=== PATIENT | female | born 1950 | race Caucasian/White ===

== ENCOUNTER → 2017-05-26 | Outpatient (CLI) | payer OTHER ==
[~2017-05-26] MED LIST: B12 SHOTS; BECL0.07 INH; CIPR500T2 PO; CYAN1000P IM; GLUCTAB PO; LASI20TA PO; LEVO125T3 PO; LORTA5 PO; MECL-62 PO; METO50TA PO; MORP1CAP63 PO; ONDA1TAB17 PO; POTA-267 PO; PRAV20 PO; PREG75 PO; RIVA20 PO; TOPI25 PO; VICT18IN SQ; VITA100018 PO; WALKER STANDARD; Z.0.OXYGEN INH
[2017-05-26 11:42] LABS: BLOOD GAS BASE EXCESS -3.6 mmol/L (-2-2); BLOOD GAS CARBOXYHEMOGLOBIN 2.2 % (0-4); BLOOD GAS HCO3 22 mmol/L (22-26); BLOOD GAS METHEMOGLOBIN 1.2 % (0-2); BLOOD GAS O2 HGB SATURATION 89 % (90-100); BLOOD GAS OXYGEN CONTENT 18.4 Vol % (12.0-20.0); BLOOD GAS PCO2 43 mmHg (38-42); BLOOD GAS PO2 69 mmHg (61-120); BLOOD GAS TOTAL HGB 14.6 G/DL (12.0-16.0); CRITICAL VALUE NO; DRAW SITE RT RADIAL; FIO2 21 %; NUMBER OF ARTERIAL PUNCTURES 1; STAT NO; TEMP CORR TO 98.6; ULNAR PULSE PRESENT
--- NOTE | 2017-05-26 14:18 | RADRPT ---
EXAM DATE/TIME: 05/26/2017 12:03 [facility] COMPARISON: No previous studies available for comparison. INDICATIONS : Cough. Short of breath. MEDICAL HISTORY : Chronic obstructive pulmonary disease. SURGICAL HISTORY : IVC filter placement. ENCOUNTER: Initial ACUITY: >1 year PAIN SCORE: 0/10 LOCATION: Bilateral chest FINDINGS: PA and lateral views of the chest demonstrate the lungs to be symmetrically aerated without evidence of mass, infiltrate or effusion. The cardiomediastinal contours are unremarkable. Osseous structure s are intact. CONCLUSION: No acute disease. There is no evidence of pneumonia. Kulwinder Cedeno MD on May 26, 2017 at 14:16 Board Certified Radiologist. This report was verified electronically.
--- NOTE | 2017-06-07 11:39 | RSPPFT ---
DATE OF PROCEDURE: 05/26/17 COMMENTS: Spirometry demonstrates an FEV1 of 1.2 at 58% of predicted, FVC of 1.9 at 69%, FEF 25-75 is 30%. Post-bronchodilator study demonstrated no significant change. Lung volumes demonstrated a raised RV/TLC ratio suggesting hyperinflation and air trapping. Airways resistance is increased. Diffusion capacity is moderately reduced. Flow volume loops suggest an obstructive pattern. Room air arterial blood gases demonstrated PCO2 of 43, PO2 of 69, pH of 7.32 and O2 Saturation of 89%. IMPRESSION: 1. Moderate obstructive disease. 2. No significant change following use of bronchodilator. 3. Moderate loss in diffusion capacity. 4. Additional mild restrictive disease.
== END ==
LOC: HRSP 10:39
DX: J44.9 Chronic obstructive pulmonary disease, unspecified (principal); R06.00 Dyspnea, unspecified; I10 Essential (primary) hypertension
CPT/HCPCS: 36600; 71020; 82805; 94060; 94726; 94729

== ENCOUNTER 2017-09-09 11:49 | Emergency (ER) | payer OTHER ==
[~2017-09-09] VITALS: Ht 160 cm; Wt 97.0 kg
[2017-09-09 12:02] VITALS: BP 185/111; PULSE 73; RESP 18; TEMP 98.1; O2SAT 96
[2017-09-09] MEDS ORDERED: METO50TA PO (12:47)
[2017-09-09] MEDS ORDERED: OXYC1TAB35 PO (12:47)
[2017-09-09] MEDS ORDERED: TOPI50TA7 PO (12:47)
[2017-09-09] MEDS ORDERED: LEVO112T2 PO (12:47)
[2017-09-09] MEDS ORDERED: POTA10TA2 PO (12:47)
[2017-09-09] MEDS ORDERED: XARE20TA PO (12:47)
[2017-09-09] MEDS ORDERED: MORP1TAB25 PO (12:47)
[2017-09-09] MEDS ORDERED: DULO1CAP2 PO (12:47)
[2017-09-09] MEDS ORDERED: SIMV20TA PO (12:47)
[2017-09-09] MEDS ORDERED: TRAZ1TAB14 PO (12:47)
[2017-09-09] MEDS ORDERED: PREG300 PO (12:47)
--- NOTE | 2017-09-09 12:59 | PD ---
HPI Chief Complaint: Musculoskeletal Complaint Time Seen by Provider: 12:48 Travel History International Travel<30 days: No Contact w/Intl Traveler<30days: No Traveled to known affect area: No History of Present Illness HPI Patient comes in complaining of intermittent right ankle pain ongoing for 2 weeks. Patient states pain comes when she steps a certain way. Patient tried using an Pablo wrap without improvement of symptoms. Denies any radiation of pain. Describes pain as a sharp intense pain. Denies any injury or fevers. PFSH Past Medical History Arthritis: Yes Blood Disorders: No Anxiety: Yes Cancer: Yes (MELANOMA NECK) Cardiovascular Problems: Yes (IRREGULAR HEARTRATE - Afib) High Cholesterol: Yes COPD: Yes Diabetes: Yes Patient Takes Glucophage: No Diminished Hearing: No Endocrine: Yes Fibromyalgia: Yes Gastrointestinal Disorders: Yes (GERD) Genitourinary: No Hepatitis: No Hiatal Hernia: No Hypertension: Yes Immune Disorder: No Implanted Vascular Access Dvce: Yes Medical other: Yes (FIBROMYALGIA; HX SEIZURE 2011) Musculoskeletal: Yes (SPINAL STENOSIS ; FIBROMYALGIA) Neurologic: Yes (NEUROPATHY ; SEIZURE 2011) Psychiatric: No Reproductive: No Respiratory: Yes (COPD; SLEEP APNEA, OXYGEN USE AT HOME 2LPM PRN) Immunizations Current: Yes Seizures: Yes Sleep Apnea: Yes (c-pap as needed) Thyroid Disease: Yes Tetanus Vaccination: > 5 Years Influenza Vaccination: Yes Menopausal: Yes Past Surgical History Abdominal Surgery: No Body Medical Devices: SCREW BACK Cardiac Surgery: No Section: Yes (x1) Ear Surgery: No Endocrine Surgery: Yes (PARTIAL THYROID REMOVAL) Eye Surgery: No Genitourinary Surgery: No Gynecologic Surgery: Yes (, left brest lumpectomy x 2, right breast lumpectomy x 1 beign cys) Joint Replacement: Yes (Left knee x3) Neurologic Surgery: Yes (LUMBAR LAMINECTOMY) Oral Surgery: Yes (TMJ) Pacemaker: No Thoracic Surgery: No Other Surgery: Yes (IVC filter) Social History Alcohol Use: No Tobacco Use: Yes (1 ppd) Substance Use: No Allergies-Medications (Allergen,Severity, Reaction): Coded Allergies: adenosine (Unverified Allergy, Severe, VOMITING, 09/09/17) duloxetine (Unverified Allergy, Mild, HEADACHE/DIZZY/VOMIT, 09/09/17) *MDRO Multi-Drug Resistant Organism (Verified Allergy, Unknown, 09/09/17) MRSA MRSA PCR Screen negative 02/24/15. Uncoded Allergies: CONTRAST MEDIA DYE (Allergy, Severe, VOMITING, 02/23/15) . Reported Meds & Prescriptions Reported Meds & Active Scripts Active Reported Oxycodone-Acetaminophen 7.5-325 mg Tab 1 Tab PO Q6H PRN Topiramate 50 Mg Tab 50 Mg PO BID Simvastatin 20 Mg Tab 20 Mg PO DAILY Levothyroxine (Levothyroxine Sodium) 112 Mcg Tab 112 Mcg PO DAILY Morphine ER (Morphine Sulfate) 30 Mg Tab 30 Mg PO BID Xarelto (Rivaroxaban) 20 Mg Tab 20 Mg PO DAILY Duloxetine DR (Duloxetine HCl) 30 Mg Capdr 30 Mg PO TID Lyrica (Pregabalin) 300 Mg Cap 1,000 Mg PO TID Metoprolol Tartrate 50 Mg Tab 50 Mg PO BID Trazodone (Trazodone HCl) 150 Mg Tablet 150 Mg PO HS Potassium Chloride ER (Potassium Chloride) 10 Meq Tab 10 Meq PO DAILY [B12 Shots] MONTHLY Review of Systems Except as stated in HPI: all other systems reviewed are Neg Physical Exam Narrative GENERAL: Well-developed, overly nourished, in no acute distress, and non-ill appearing. SKIN: Focused skin assessment warm and dry. HEAD: Atraumatic. Normocephalic. EYES: Pupils equal and round. EOMI. No scleral icterus. No injection or drainage. ENT: No nasal bleeding or discharge. Mucous membranes pink and moist. NECK: Trachea midline. Supple. No nuclear rigidity. CARDIOVASCULAR: Dorsal pulses 2+, intact, equal bilaterally. Capillary refill less than 2 seconds. RESPIRATORY: No accessory muscle use. No respiratory distress. MUSCULOSKELETAL: No obvious deformities. No clubbing. No cyanosis. No edema. Full range of motion.Ankle: Neagative anterior draw and Davis test. Negative Carson's sign. No laxity noted with passive inversion and eversion of BL ankles. Negative squeeze test. Pulses equal BL distal to injury. Capillary refill less than 2 seconds distal to injury and equal BL. Sensation equal BL 1st web space. FROM of toes distal to injury and equal BL. NV intact distal to injury and equal BL. Dorsal pulses equal BL. NEUROLOGICAL: Awake and alert. No obvious cranial nerve deficits. Motor grossly within normal limits. Normal speech. PSYCHIATRIC: Appropriate mood and affect; insight and judgment normal. Data Data Last Documented VS Vital Signs Date Time Temp Pulse Resp B/P (MAP) Pulse Ox O2 Delivery O2 Flow Rate FiO2 09/09/17 12:02 98.1 73 18 185/111 (135) 96 Orders Orders Ankle, Complete ([id number]) (09/09/17 ) Splint Or Brace Apply/Monitor (09/09/17 14:16) Ed Discharge Order (09/09/17 14:16) MDM Medical Decision Making Medical Screen Exam Complete: Yes Emergency Medical Condition: Yes Interpretation(s) Last Impressions Ankle X-Ray 09/09/17 0000 Signed Impressions: Service Date/Time: Tuesday, September 09, 2017 13:20 - CONCLUSION: 1. Soft tissue swelling along lateral malleolus. 2. No acute fracture or joint dislocation. Erwin Rojas MD Differential Diagnosis Fracture, sprain, contusion, dislocation, arthritis Narrative Course There is no clinical evidence for fracture. There is no clinical evidence to suspect bony injury by exam. Radiographic examination revealed no fracture seen at this time. No obvious ligamental injury or internal derangement is noted at this time. The distal extremity appears neurovascularly intact, without evidence of neurovascular injury nor compartment syndrome. Tendon exam also was intact. The effected limb was splinted. The patient was discharged with sprain and splint care instructions and given warnings for vascular compromise. The patient is to follow up with Orthopedics. The patient agrees with plan. Patient in no obvious distress upon re-evaluation. All pertinent Radiology result(s) discussed with patient. Any questions/concerns in reference to patient diagnosis/condition discussed and clarified prior to patient's discharge. Reinforced sheer importance of close follow up with patient's primary physician or primary care clinic. Instructed patient to return to ED immediately, if symptoms return/worsen. Patient showed understanding of above instructions. Further instructions and recommendations were detailed in discharge paperwork. Patient ambulated without difficulty out of ED at discharge. Diagnosis Primary Impression: Right ankle pain Qualified Codes: M25.571 - Pain in right ankle and joints of right foot Referrals: Tae Swan MD Patient Instructions: Ankle Stirrup Splint (ED), Arthralgia (ED), General Instructions Additional Instructions: Follow-up with your primary care physician and/or orthopedics this week for reevaluation. Take your pain medication as prescribed. Wear Pablo wrap and ankle stirrup as needed for comfort. Return to the emergency department if symptoms get worse. Disposition: 01 DISCHARGE HOME Condition: Stable Manish Smith Sep 09, 2017 12:59
--- NOTE | 2017-09-09 13:45 | RADRPT ---
EXAM DATE/TIME: 09/09/2017 13:20 [facility] COMPARISON: No previous studies available for comparison. INDICATIONS : Right lateral anlkle pain x 2 weeks with no known injury. MEDICAL HISTORY : Hypercholesterolemia. Chronic obstructive pulmonary disease. Gastroesophageal reflux disease. Thy roid disease. Seizures. Hypertension. Fibromyalgia. Spinal stenosis. SURGICAL HISTORY : section. Total knee replacement, left. IVC filter. Bilateral lumpectomy. Partial thyroidect leonela. ENCOUNTER: Initial ACUITY: 2 weeks PAIN SCORE: 5/10 LOCATION: Right lateral ankle. FINDINGS: Three view exam was performed of the right ankle. The bony structures are in normal alignment. No e vidence of fracture, dislocation. There is soft tissue swelling around the ankle and especially at th e lateral malleolus.. The ankle mortise is intact. No radiopaque foreign bodies are seen. Bony min eralization is normal. CONCLUSION: 1. Soft tissue swelling along lateral malleolus. 2. No acute fracture or joint dislocation. Erwin Rojas MD on September 09, 2017 at 13:42 Board Certified Radiologist. This report was verified electronically.
== END 2017-09-09 14:51 | disposition home or self-care (01) ==
LOC: PHEFT 11:49
DX: M25.571 Pain in right ankle and joints of right foot (principal); I48.91 Unspecified atrial fibrillation; E78.00 Pure hypercholesterolemia, unspecified; J44.9 Chronic obstructive pulmonary disease, unspecified; E11.9 Type 2 diabetes mellitus without complications; M79.7 Fibromyalgia; I10 Essential (primary) hypertension; M48.00 Spinal stenosis, site unspecified; E07.9 Disorder of thyroid, unspecified; F17.210 Nicotine dependence, cigarettes, uncomplicated; Z96.652 Presence of left artificial knee joint
CPT/HCPCS: 73610; 99283; L1906

== ENCOUNTER 2018-09-13 01:31 | Inpatient (IN) ==
[2018-09-13] MEDS ORDERED: Sodium Chlor 0.9% Inj 500 ML IV.SIG ONE (01:58)
[2018-09-13] MEDS ORDERED: MethylPREDNISolone Sod Succinate Inj 125 MG/2 ML Vial IV.PUSH ONE (01:58)
[2018-09-13] MEDS ORDERED: Azithromycin Inj 500 MG in Sodium Chlor 0.9% Inj 250 ML IV.SIG ONE (01:58)
[2018-09-13 01:59] LABS: ABG Base Excess -4.8 mmol/L (-2-2); ABG PCO2 31 mmHg (38-42); ABG PO2 52 mmHg (61-120)
[2018-09-13 02:16] LABS: ABG Base Excess -4.9 mmol/L (-2-2); ABG PCO2 31 mmHg (38-42); ABG PO2 55 mmHg (61-120)
--- NOTE | 2018-09-13 02:26 | XR ---
EXAM DATE: 09/13/2018 2:17 AM EST AGE/SEX: 67 years / Female INDICATIONS: Shortness of breath. CLINICAL DATA: This is the patient's initial encounter. Patient reports that signs and symptoms have been present for 1 day and indicates a pain score of Nonresponsive. MEDICAL/SURGICAL HISTORY: Hypertension. Chronic obstructive pulmonary disease. None. COMPARISON: POI, XR CHEST PA AND LAT, 02/01/2018. . FINDINGS: A single AP view of the chest demonstrates left basilar airspace disease. Right lung clear. Heart nor mal in size. The cardiomediastinal contours are unremarkable. Osseous structures are intact. CONCLUSION: Left basilar airspace disease. Electronically signed by: Mika Valentine MD Board Certified Radiologist 09/13/2018 2:24 AM EST
[2018-09-13 02:42] LABS: Bacteria,Urine Many /hpf; Bilirubin,Urine Negative (Negative); Clarity,Urine Cloudy (Clear); Color,Urine Amber (Yellw/Straw); Glucose,Urine (UA) Negative (Negative); Leukocyte Esterase,Urine Moderate (Negative); Mucus,Urine Few /lpf (Occasional); Nitrite,Urine Positive (Negative); Renal Epithelial Cells,Urine 1 /hpf; Specific Gravity,Urine 1.015 (1.002-1.035); Squamous Epithelial Cell,Urine <1 /hpf (0-5); Transitional Epi Cells,Urine 1 /hpf
[2018-09-13 02:48] LABS: Alanine Aminotransferase 16 U/L (10-53); Albumin 2.7 g/dL (3.4-5.0); Anion Gap 9 meq/L (5-15); Aspartate Aminotransferase 19 U/L (15-37); Blood Urea Nitrogen 27 mg/dL (7-18); Calcium 8.4 mg/dL (8.5-10.1); Chloride 113 meq/L (98-107); Glomerular Filtration Rate 58 mL/min (>89); Glucose,Random 135 mg/dL (74-106); Lipase 116 U/L (73-393); Magnesium 2.2 mg/dL (1.5-2.5); Potassium 4.7 meq/L (3.5-5.1); Sodium 143 meq/L (136-145)
[2018-09-13 02:52] LABS: Alkaline Phosphatase 108 U/L (45-117); Creatine Kinase 165 U/L (26-192); Total Protein 7.2 g/dL (6.4-8.2)
[2018-09-13 02:55] LABS: Baso % (Auto) 0.2 % (0.0-2.0); Eos % (Auto) 0.1 % (0.0-4.0); Hematocrit 41.3 % (35.0-46.0); Lymph # (Auto) 2.1 th/mm3 (1.0-4.8); Lymph % (Auto) 17.3 % (9.0-44.0); Mean Corpuscular HGB Conc 33.9 % (32.0-36.0); Mean Corpuscular Hemoglobin 31.9 pg (27.0-34.0); Mean Platelet Volume 8.9 fL (7.0-11.0); Mono % (Auto) 8.1 % (0.0-8.0); Neut % (Auto) 74.3 % (16.0-70.0); Platelet Count 225 th/mm3 (150-450); Red Blood Count 4.39 mil/mm3 (4.00-5.30); White Blood Count 12.1 th/mm3 (4.0-11.0)
[2018-09-13 03:04] LABS: ABG Base Excess -5.1 mmol/L (-2-2); ABG PCO2 34 mmHg (38-42); ABG PO2 57 mmHg (61-120)
[2018-09-13 03:04] LABS: Creatine Kinase MB 1.2 ng/mL (0.5-3.6)
[2018-09-13 03:06] LABS: Activated Partial Thrombo Time 30.8 sec (23.4-31.7); Prothrombin Time 10.2 sec (9.8-11.6)
--- NOTE | 2018-09-13 04:12 | ED ---
HPI General Chief complaint: Altered Mental Status Stated complaint: resp/mental status issues Time Seen by Provider: 09/13/18 01:40 Source: EMS Mode of arrival: EMS Limitations: altered mental status History of Present Illness HPI narrative: The patient is a 67 year old female who presents to the [facility] emergency department with a history of altered mentation that has been ongoing for the last 3 days according to ambulance services. The patient's called ambulance services when he was unable to fully assist her to the bathroom. The patient has been increasingly weak over time with generalized weakness. The patient arrived with a temp of 100.4. The patient was noted to have respiratory distress according to ambulance services with an O2 saturation on room air of 87%. The patient was noted to be wheezing and a DuoNeb x1 was administered followed by 2 albuterol nebulizer treatments. The patient reports that she does smoke 1 pack of cigarettes per day. The patient otherwise is difficult to obtain a history from as she has difficulty recalling her medical history and is confused on examination. The patient is oriented to person, however not place, time, or situation. Related Data Home Medications Medication Instructions Recorded Confirmed amlodipine 5 mg PO DAILY 09/13/18 09/13/18 cholecalciferol (vitamin D3) 2,000 unit PO BID 09/13/18 09/13/18 [Vitamin D3] duloxetine 30 mg PO TID 09/13/18 09/13/18 lamotrigine 100 mg PO DAILY 09/13/18 09/13/18 levothyroxine 112 mcg PO DAILY 09/13/18 09/13/18 losartan 100 mg PO DAILY 09/13/18 09/13/18 metoprolol tartrate 50 mg PO BID 09/13/18 09/13/18 mirabegron [Myrbetriq] 50 mg PO DAILY 09/13/18 09/13/18 morphine 30 mg PO Q12H 09/13/18 09/13/18 oxycodone-acetaminophen 1 tab PO Q6H PRN 09/13/18 09/13/18 potassium chloride 20 meq PO DAILY 09/13/18 09/13/18 pregabalin [Lyrica] 100 mg PO TID 09/13/18 09/13/18 rivaroxaban [Xarelto] 20 mg PO DAILY 12/19/18 12/19/18 simvastatin 20 mg PO QPM 09/13/18 09/13/18 topiramate 50 mg PO BID 09/13/18 09/13/18 trazodone 150 mg PO DAILY 09/13/18 09/13/18 Allergies Allergy/AdvReac Type Severity Reaction Status Date / Time adenosine Allergy Severe VOMITING Verified 09/13/18 01:40 duloxetine Allergy Mild HEADACHE/DI Verified 09/13/18 01:40 ZZY/VOMIT CONTRAST MEDIA DYE Allergy Severe VOMITING Uncoded 09/13/18 01:40 *MDRO Multi-Drug Resistant Allergy Unknown unknown Uncoded 09/13/18 01:40 Organism Review of Systems ROS Unobtainable ROS Unobtainable: unobtainable due to mental status PMFSH History History Provided By: Family Member, Medical Record and Ground Crewman / EMT Medical History Medical History Afib (Acute) Arthritis (Acute) Diabetes (Acute) Fibromyalgia (Acute) Hypercholesterolemia (Acute) Hypertension (Acute) Hypothyroidism (Acute) Overactive bladder (Acute) Surgical History Surgical History History of back surgery (Acute) History of knee surgery (Acute) Social History Social History Substance History: No History of Abuse Smoking Status: Current every day smoker Packs Per Day: 1 Cigarettes Per Day: 20.0 How Often Do You Have a Drink Containing Alcohol: Monthly or less Recent Travel in [facility] within the Last 8 Weeks: No Recent Out of Country Travel within the Last 8 Weeks: No Exam Const General: cooperative, well developed and acute distress mild and respiratory Nutritional Appearance: obese Orientation: alert, awake, oriented to person, not oriented to place and not oriented to time [facility] Head: normocephalic and atraumatic Nose: no nasal discharge and no epistaxis Mouth: moist mucous membranes Throat: posterior oropharynx normal and uvula midline Eyes Sclera: normal sclerae Pupils: PERRL Neck Neck: no meningeal signs, trachea midline and no JVD Resp Effort & Inspection: audible wheezes Auscultation: crackles on the left, rhonchi, wheezes and other (The patient has tachypnea with accessory muscle use noted. No paroxysmal abdominal breathing. No tripoding.) Cardio Rate: regular rate Rhythm: regular rhythm Heart Sounds: no murmurs GI Inspection: non-distended Palpation: soft, no hepatosplenomegaly, no guarding, not rigid and nontender Auscultation: normal bowel sounds Back/Spine/Pelvis Back: no CVA tenderness Skin General: dry skin (warm) Neuro General: alert, awake and oriented (To person only, not place, time, or situation.) Cranial Nerves: CN's II-XI intact bilaterally Speech: speech normal Motor: strength 5/5 throughout and no movement abnormalities noted Sensory Exam: no sensory deficits noted Extrem General: normal to inspection, no calf tenderness, no clubbing, no cyanosis and edema (Trace pedal edema) Laterality: bilaterally Course Initial Documented Vital Signs Temperature 100.4 F H 09/13/18 01:40 Pulse Rate 93 H 09/13/18 01:40 Respiratory Rate 20 09/13/18 01:40 Blood Pressure 126/74 09/13/18 01:40 Pulse Oximetry 89 L 09/13/18 01:40 Last Documented Vital Signs Temperature 98.7 F 09/13/18 05:57 Pulse Rate 85 09/13/18 05:57 Respiratory Rate 15 09/13/18 05:57 Blood Pressure 123/72 09/13/18 05:57 Pulse Oximetry 91 L 09/13/18 05:57 Critical Care Time Critical Care Time: Yes Total Critical Care Time: 34 Attestation: Aggregate critical care time was 34 minutes. Time to perform other separately billable procedures was not included in the critical care time. My time did not include minutes spent treating any other patients simultaneously or on activities that did not directly contribute to the patient's treatment. The services I provided to this patient were to treat and/or prevent clinically significant deterioration that could result in: Hypoxemic encephalopathy, versus respiratory failure, versus cardiovascular collapse from sepsis, versus fluid overload from crystalloid resuscitation I provided critical care services requiring my management, as noted below: Chart data review, documentation time, medication orders and management, vital sign assessments/reviewing monitor data, ordering and reviewing lab tests, ordering and interpreting/reviewing x-rays and diagnostic studies, care of the patient and discussion of the patient with the admitting physicians. Medical Decision Making MDM Narrative Medical decision making narrative: During the course of the patient's emergency department visit, the patient's history, examination, and differential diagnosis were reviewed with the patient. The patient was placed on a molding machine operator with oximetry and frequent blood pressure monitoring. The patient had IV access obtained and blood work sent for analysis. A diagnostic evaluation was started regarding the patient's altered mentation, shortness of breath, cough, congestion. Sepsis workup was initiated. The patient was initially provided Normal saline of 500 mL bolus x1, Solu- Medrol 125 mg IV, DuoNeb x1, Rocephin 1 g IV, Zithromax 500 IV. The patient's diagnostic studies are remarkable for a white count of 12.1, hemoglobin 14, platelets 225 with 74.3 neutrophils, PT PTT within normal limits , chemistry is remarkable for chloride of 113, BUN 27, GFR 58, glucose 135, calcium 8.4, cardiac enzymes within normal limits, lipase within normal limits, lactic acid 0.8, catheterized urine shows evidence of urinary tract infection with positive nitrate, moderate leukocyte esterase, 6 RBCs, innumerable WBCs with clumps and many bacteria. A chest x-ray shows a left basilar infiltrate. CT scan of the brain shows no acute intracranial abnormality. An ABG done on this patient on arrival was initially thought to be a VBG, therefore it was repeated, however it was confirmed to be arterial and showed a pH of 7.4, PCO2 31, PO2 55, bicarb 19, base excess -4.9, and this patient that was on 4 L nasal cannula O2. The patient was then placed on BiPAP which she tolerated well at 12 /5 and 40% FiO2. This will be weaned as tolerated to maintain her O2 saturations is greater than or equal to 92%. The patient's case including history, pertinent physical examination findings, and laboratory studies were discussed with Dr. Be. It was agreed that the patient would be admitted to the hospitalist service. The patient's results were discussed with the patient, including the plan of care. I explained that further testing and/ or monitoring is indicated based on the patient's history, examination, and/ or laboratory findings. Therefore, I recommended admission for additional evaluation. The patient expressed understanding and was agreeable with this plan. The patient was admitted to the hospital in guarded condition and sent to a bed under the care of the [facility] service. Medical Screen Exam Complete: Yes Emergency Medical Condition: Yes Differential Diagnosis Differential Diagnosis: Pneumonia, versus urinary tract infection, versus sepsis related encephalopathy, versus sepsis related to undetermined origin, versus intracranial hemorrhage, versus intracranial mass Medical Records Medical records reviewed: Yes I reviewed the patient's medical records. Lab Data Lab results reviewed: Yes I reviewed the patient's lab results. Result diagrams: 09/13/18 02:00 09/13/18 02:00 Lab Results 09/13/18 09/13/18 09/13/18 Range/Units 01:46 02:00 02:00 WBC 12.1 H (4.0-11.0) th/mm3 RBC 4.39 (4.00-5.30) mil/mm3 Hgb 14.0 (11.6-15.3) gm/dL Hct 41.3 (35.0-46.0) % MCV 94.0 (80.0-100.0) fL MCH 31.9 (27.0-34.0) pg MCHC 33.9 (32.0-36.0) % RDW 15.0 (11.6-17.2) % Plt Count 225 (150-450) th/mm3 MPV 8.9 (7.0-11.0) fL Neut % (Auto) 74.3 H (16.0-70.0) % Lymph % (Auto) 17.3 (9.0-44.0) % Sequoyah % (Auto) 8.1 H (0.0-8.0) % Eos % (Auto) 0.1 (0.0-4.0) % Baso % (Auto) 0.2 (0.0-2.0) % Neut # (Auto) 9.0 H (1.8-7.7) th/mm3 Lymph # (Auto) 2.1 (1.0-4.8) th/mm3 [place] # (Auto) 1.0 H (0.0-0.9) th/mm3 Eos # (Auto) 0.0 (0.0-0.4) th/mm3 Baso # (Auto) 0.0 (0.0-0.2) th/mm3 WBC Differential . Differential Comment Auto diff final PT 10.2 (9.8-11.6) sec INR 1.0 Ratio APTT 30.8 (23.4-31.7) sec Puncture Site Right radial Patient Temperature 98.6 O2 Saturation 86 L* (90-100) % ABG pH 7.40 (7.380-7.420) ABG pCO2 31 L (38-42) mmHg ABG pO2 52 L* (61-120) mmHg ABG HCO3 19 L (22-26) mmol/L ABG O2 Content 17.1 (12.0-20.0) Vol % ABG Base Excess -4.8 L (-2-2) mmol/L ABG Methemoglobin 0.7 (0-2) % Candido Test Present Hemoglobin 14.1 (12.0-16.0) G/DL Carboxyhemoglobin 1.2 (0-4) % O2 Delivery Device Nasal cannula Liter Flow 4.00 L/M Critical Value Yes Sodium (136-145) meq/L Potassium (3.5-5.1) meq/L Chloride (98-107) meq/L Carbon Dioxide (21.0-32.0) meq/L Anion Gap (5-15) meq/L BUN (7-18) mg/dL Creatinine (0.50-1.00) mg/dL Estimated GFR (>89) mL/min Random Glucose (74-106) mg/dL Lactic Acid (0.4-2.0) mmol/L Calcium (8.5-10.1) mg/dL Magnesium (1.5-2.5) mg/dL Total Bilirubin (0.2-1.0) mg/dL AST (15-37) U/L ALT (10-53) U/L Alkaline Phosphatase (45-117) U/L Total Creatine Kinase (26-192) U/L CK-MB (CK-2) (0.5-3.6) ng/mL Troponin I (0.02-0.05) ng/mL Total Protein (6.4-8.2) g/dL Albumin (3.4-5.0) g/dL Lipase (73-393) U/L Urine Color (Yellw/Straw) Urine Clarity (Clear) Urine pH (5.0-8.5) Ur Specific [place] (1.002-1.035) Urine Protein (Neg-Trace) mg/dL Urine Glucose (UA) (Negative) mg/dL Urine Ketones (Negative) mg/dL Urine Occult Blood (Negative) Urine Nitrate (Negative) Urine Bilirubin (Negative) Urine Urobilinogen (Less than 2) mg/dL Ur Leukocyte Esterase (Negative) Urine RBC (0-3) /hpf Urine WBC (0-5) /hpf Urine WBC Clumps (None) Ur Squamous Epith Cells (0-5) /hpf Ur Transition Epith Cell (None) /hpf Ur Renal Epithelial Cell (None) /hpf Urine Bacteria (None) /hpf Urine Mucus (Occasional) /lpf Micro UA Comment Ur Microscopic Review Urine Culture Comments 09/13/18 09/13/18 09/13/18 Range/Units 02:00 02:05 02:10 WBC (4.0-11.0) th/mm3 RBC (4.00-5.30) mil/mm3 Hgb (11.6-15.3) gm/dL Hct (35.0-46.0) % MCV (80.0-100.0) fL MCH (27.0-34.0) pg MCHC (32.0-36.0) % RDW (11.6-17.2) % Plt Count (150-450) th/mm3 MPV (7.0-11.0) fL Neut % (Auto) (16.0-70.0) % Lymph % (Auto) (9.0-44.0) % Sequoyah % (Auto) (0.0-8.0) % Eos % (Auto) (0.0-4.0) % Baso % (Auto) (0.0-2.0) % Neut # (Auto) (1.8-7.7) th/mm3 Lymph # (Auto) (1.0-4.8) th/mm3 [place] # (Auto) (0.0-0.9) th/mm3 Eos # (Auto) (0.0-0.4) th/mm3 Baso # (Auto) (0.0-0.2) th/mm3 WBC Differential Differential Comment PT (9.8-11.6) sec INR Ratio APTT (23.4-31.7) sec Puncture Site Patient Temperature O2 Saturation (90-100) % ABG pH (7.380-7.420) ABG pCO2 (38-42) mmHg ABG pO2 (61-120) mmHg ABG HCO3 (22-26) mmol/L ABG O2 Content (12.0-20.0) Vol % ABG Base Excess (-2-2) mmol/L ABG Methemoglobin (0-2) % Candido Test Hemoglobin (12.0-16.0) G/DL Carboxyhemoglobin (0-4) % O2 Delivery Device Liter Flow L/M Critical Value Sodium 143 (136-145) meq/L Potassium 4.7 (3.5-5.1) meq/L Chloride 113 H (98-107) meq/L Carbon Dioxide 21.0 (21.0-32.0) meq/L Anion Gap 9 (5-15) meq/L BUN 27 H (7-18) mg/dL Creatinine 0.95 (0.50-1.00) mg/dL Estimated GFR 58 L (>89) mL/min Random Glucose 135 H (74-106) mg/dL Lactic Acid 0.8 (0.4-2.0) mmol/L Calcium 8.4 L (8.5-10.1) mg/dL Magnesium 2.2 (1.5-2.5) mg/dL Total Bilirubin 0.5 (0.2-1.0) mg/dL AST 19 (15-37) U/L ALT 16 (10-53) U/L Alkaline Phosphatase 108 (45-117) U/L Total Creatine Kinase 165 (26-192) U/L CK-MB (CK-2) 1.2 (0.5-3.6) ng/mL Troponin I Less than 0.02 L (0.02-0.05) ng/mL Total Protein 7.2 (6.4-8.2) g/dL Albumin 2.7 L (3.4-5.0) g/dL Lipase 116 (73-393) U/L Urine Color [place] (Yellw/Straw) Urine Clarity Cloudy H (Clear) Urine pH 5.0 (5.0-8.5) Ur Specific [place] 1.015 (1.002-1.035) Urine Protein 100 H (Neg-Trace) mg/dL Urine Glucose (UA) Negative (Negative) mg/dL Urine Ketones Negative (Negative) mg/dL Urine Occult Blood Small H (Negative) Urine Nitrate Positive H (Negative) Urine Bilirubin Negative (Negative) Urine Urobilinogen Less than 2 (Less than 2) mg/dL Ur Leukocyte Esterase Moderate H (Negative) Urine RBC 6 H (0-3) /hpf Urine WBC (0-5) /hpf Urine WBC Clumps Many H (None) Ur Squamous Epith Cells <1 (0-5) /hpf Ur Transition Epith Cell 1 (None) /hpf Ur Renal Epithelial Cell 1 (None) /hpf Urine Bacteria Many H (None) /hpf Urine Mucus Few H (Occasional) /lpf Micro UA Comment Cath-culture ind Ur Microscopic Review Not Reportable Urine Culture Comments Cath-cult indicated 09/13/18 09/13/18 Range/Units 02:11 02:29 WBC (4.0-11.0) th/mm3 RBC (4.00-5.30) mil/mm3 Hgb (11.6-15.3) gm/dL Hct (35.0-46.0) % MCV (80.0-100.0) fL MCH (27.0-34.0) pg MCHC (32.0-36.0) % RDW (11.6-17.2) % Plt Count (150-450) th/mm3 MPV (7.0-11.0) fL Neut % (Auto) (16.0-70.0) % Lymph % (Auto) (9.0-44.0) % [place] % (Auto) (0.0-8.0) % Eos % (Auto) (0.0-4.0) % Baso % (Auto) (0.0-2.0) % Neut # (Auto) (1.8-7.7) th/mm3 Lymph # (Auto) (1.0-4.8) th/mm3 [place] # (Auto) (0.0-0.9) th/mm3 Eos # (Auto) (0.0-0.4) th/mm3 Baso # (Auto) (0.0-0.2) th/mm3 WBC Differential Differential Comment PT (9.8-11.6) sec INR Ratio APTT (23.4-31.7) sec Puncture Site Right radial Right brachial Patient Temperature 98.6 98.6 O2 Saturation 88 L* 88 L* (90-100) % ABG pH 7.40 7.37 L (7.380-7.420) ABG pCO2 31 L 34 L (38-42) mmHg ABG pO2 55 L* 57 L* (61-120) mmHg ABG HCO3 19 L 19 L (22-26) mmol/L ABG O2 Content 17.5 17.1 (12.0-20.0) Vol % ABG Base Excess -4.9 L -5.1 L (-2-2) mmol/L ABG Methemoglobin 0.7 0.5 (0-2) % Candido Test Present Hemoglobin 14.2 13.8 (12.0-16.0) G/DL Carboxyhemoglobin 1.1 0.9 (0-4) % O2 Delivery Device Nasal cannula Nasal cannula Liter Flow 4.00 4.00 L/M Critical Value Yes Yes Sodium (136-145) meq/L Potassium (3.5-5.1) meq/L Chloride (98-107) meq/L Carbon Dioxide (21.0-32.0) meq/L Anion Gap (5-15) meq/L BUN (7-18) mg/dL Creatinine (0.50-1.00) mg/dL Estimated GFR (>89) mL/min Random Glucose (74-106) mg/dL Lactic Acid (0.4-2.0) mmol/L Calcium (8.5-10.1) mg/dL Magnesium (1.5-2.5) mg/dL Total Bilirubin (0.2-1.0) mg/dL AST (15-37) U/L ALT (10-53) U/L Alkaline Phosphatase (45-117) U/L Total Creatine Kinase (26-192) U/L CK-MB (CK-2) (0.5-3.6) ng/mL Troponin I (0.02-0.05) ng/mL Total Protein (6.4-8.2) g/dL Albumin (3.4-5.0) g/dL Lipase (73-393) U/L Urine Color (Yellw/Straw) Urine Clarity (Clear) Urine pH (5.0-8.5) Ur Specific [place] (1.002-1.035) Urine Protein (Neg-Trace) mg/dL Urine Glucose (UA) (Negative) mg/dL Urine Ketones (Negative) mg/dL Urine Occult Blood (Negative) Urine Nitrate (Negative) Urine Bilirubin (Negative) Urine Urobilinogen (Less than 2) mg/dL Ur Leukocyte Esterase (Negative) Urine RBC (0-3) /hpf Urine WBC (0-5) /hpf Urine WBC Clumps (None) Ur Squamous Epith Cells (0-5) /hpf Ur Transition Epith Cell (None) /hpf Ur Renal Epithelial Cell (None) /hpf Urine Bacteria (None) /hpf Urine Mucus (Occasional) /lpf Micro UA Comment Ur Microscopic Review Urine Culture Comments Imaging Data Radiologist's impression: Chest X-Ray 09/13/18 01:58 CONCLUSION: Left basilar airspace disease. Head CT 09/13/18 01:58 CONCLUSION: 1. No acute intracranial abnormality 2. Small amount of fluid in the maxillary sinuses greater on the left. This can be seen with sinusitis. . ECG Data Attestation: I personally reviewed and interpreted this ECG as follows: Interpretation: The patient had an EKG done on arrival. The patient's EKG reveals a sinus rhythm heart rate of 89, no acute ST segment elevation. T waves are inverted in V1, V2, an incomplete right bundle branch block is noted. Discharge Plan Discharge Disposition Patient Disposition: ED Admit(ED Internal Use Only) Discharge Order Discharge Orders: ED Use Only Admit Order (Routine); Ordered 09/13/18 Ordered By: Nguyen Fierro Discharge Details Diagnosis: Pneumonia, UTI (urinary tract infection), Acute respiratory distress Physicians Team ED Provider: Nguyen Fierro Primary Care Provider: Jen Gilbert Attending Provider: Blair Caruso Other Providers: Yeny Saini Status ED Status: Left Department Discharge Information Discharge Date/Time: 09/13/18 06:00
--- NOTE | 2018-09-13 04:20 | CT ---
EXAM DATE: 09/13/2018 4:01 AM EST AGE/SEX: 67 years / Female INDICATIONS: Altered mental status. CLINICAL DATA: This is the patient's initial encounter. Patient reports that signs and symptoms have been present for 1 day and indicates a pain score of Nonresponsive. MEDICAL/SURGICAL HISTORY: None. None. RADIATION DOSE: 56.35 CTDI (mGy) COMPARISON: [facility], CT BRAIN W/O CONTRAST, 02/23/2015. . TECHNIQUE: CT of the head without contrast. Using automated exposure control and adjustment of the mA and/or kV according to patient size, radiation dose was kept as low as reasonably achievable to ob tain optimal diagnostic quality images. DICOM format image data is available electronically for revi ew and comparison. FINDINGS: Cerebrum: The ventricles are normal for age. No evidence of midline shift, mass lesion, hemorrhage or acute infarction. No extraaxial fluid collections are seen. Posterior Fossa: The cerebellum and brainstem are intact. The 4th ventricle is midline. The cerebe llopontine angle is unremarkable. Extracranial: The visualized portion of the orbits is intact. Small amount of fluid in maxillary sin uses slightly more so in the left. Skull: The calvaria is intact. No evidence of skull fracture. CONCLUSION: 1. No acute intracranial abnormality 2. Small amount of fluid in the maxillary sinuses greater on the left. This can be seen with sinusit is. . Electronically signed by: Mika Valentine MD Board Certified Radiologist 09/13/2018 4:18 AM EST
[2018-09-13] MEDS ORDERED: Bisacodyl 10 MG Supp RECTAL PRN (04:28)
[2018-09-13] MEDS ORDERED: Acetaminophen 325 MG Tablet PO PRN (04:28)
[2018-09-13] MEDS: Sod Chloride 0.9% Inj 1,000 ML IV.CONT SCH ×2 (05:05→17:05)
[2018-09-13] MEDS: Heparin - SQ 10,000 UNITS/ML Vial SQ SCH ×2 (05:05→12:55)
[2018-09-13] MEDS: MethylPREDNISolone Sod Succinate Inj 40 MG/ML Vial IV.PUSH SCH ×3 (06:49→21:19)
[2018-09-13] MEDS: Levothyroxine 112 MCG Tablet PO SCH (06:51)
[2018-09-13] MEDS ORDERED: MYRBETRIC 50 MG PO SCH (09:00)
[2018-09-13] MEDS: Rivaroxaban 20 MG Tablet PO SCH (09:04)
[2018-09-13] MEDS: traZODone 100 MG Tablet PO SCH (09:04)
[2018-09-13] MEDS: Topiramate 25 MG Tablet PO SCH ×2 (09:05→21:18)
[2018-09-13] MEDS: Metoprolol Tartrate 50 MG Tablet PO SCH ×2 (09:05→21:19)
[2018-09-13] MEDS: lamoTRIgine 100 MG Tablet PO SCH (09:05)
[2018-09-13] MEDS: Senna/Docusate Sodium 8.6/50 MG Tablet PO SCH ×2 (09:05→21:18)
[2018-09-13] MEDS: amLODIPine 5 MG Tablet PO SCH (09:05)
[2018-09-13] MEDS: Tolterodine Tartrate LA 4 MG Capsule PO SCH (10:01)
--- NOTE | 2018-09-13 11:41 | P.HPIM ---
History of Present Illness Primary Care Physician: Jen Gilbert MD Chief Complaint: Altered mental status, weakness History of Present Illness: 7-year-old female with a history of type 2 diabetes , COPD, hypothyroidism, atrial fibrillation states that she was admitted overnight to the ER. Still related to admission is a cough that started 1 week ago. He was given antibiotics and for the last week has been at home becoming increasingly confused. Her encouraged her to come to the ER number of days ago but she was oriented enough to refuse. Overnight she became markedly confused her called EMS and ambulance transported her to the ER where she was discovered to have pneumonia in her left base. Urine cultures demonstrated urinary tract infection which is likely source of her since receiving 3 doses of antibiotics she has become mentally clear and is now alert and oriented x3. She has a history of COPD and has needed BiPAP overnight. She denies any chest pain or cardiac arrhythmias. She denies any GI symptoms, no nausea or vomiting. She has no focal weakness and no memory loss at this point. Inpatient Certification Inpatient Certification: I certify that the inpatient services were ordered in accordance with Medicare regulations governing the order. This includes certification that hospital inpatient services are reasonable and necessary and in the case of services not specified as inpatient-only under 42 CFR 419.22(n), that they are appropriately provided as inpatient services in accordance to with the 2-midnight benchmark under 43 CFR 412.3(e) Estimated Total Length of Stay (Days): 2 Plans for Post Hospital Care: Not yet determined Review of Systems Review of Systems: all other systems reviewed are negative [facility] Medical History Medical History Afib (Acute) Arthritis (Acute) Diabetes (Acute) Fibromyalgia (Acute) Hypercholesterolemia (Acute) Hypertension (Acute) Hypothyroidism (Acute) Overactive bladder (Acute) Surgical History Surgical History History of back surgery (Acute) History of knee surgery (Acute) Social History Social History Substance History: No History of Abuse Smoking Status: Cognitive impairment Packs Per Day: 1 Cigarettes Per Day: 20.0 How Often Do You Have a Drink Containing Alcohol: Unable to Obtain Recent Travel in [facility] within the Last 8 Weeks: No Recent Out of Country Travel within the Last 8 Weeks: No Immunization History Hx Influenza Vaccine This Season: Yes Medications and Allergies Allergies Allergy/AdvReac Type Severity Reaction Status Date / Time adenosine Allergy Severe VOMITING Verified 09/13/18 01:40 duloxetine Allergy Mild HEADACHE/DI Verified 09/13/18 01:40 ZZY/VOMIT CONTRAST MEDIA DYE Allergy Severe VOMITING Uncoded 09/13/18 01:40 *MDRO Multi-Drug Resistant Allergy Unknown unknown Uncoded 09/13/18 01:40 Organism Home Medications Medication Instructions Recorded Confirmed Type amlodipine 5 mg PO DAILY 09/13/18 09/13/18 History cholecalciferol (vitamin D3) 2,000 unit PO BID 09/13/18 09/13/18 History [Vitamin D3] duloxetine 30 mg PO TID 09/13/18 09/13/18 History lamotrigine 100 mg PO DAILY 09/13/18 09/13/18 History levothyroxine 112 mcg PO DAILY 09/13/18 09/13/18 History losartan 100 mg PO DAILY 09/13/18 09/13/18 History metoprolol tartrate 50 mg PO BID 09/13/18 09/13/18 History mirabegron [Myrbetriq] 50 mg PO DAILY 09/13/18 09/13/18 History morphine 30 mg PO Q12H 09/13/18 09/13/18 History oxycodone-acetaminophen 1 tab PO Q6H PRN 09/13/18 09/13/18 History potassium chloride 20 meq PO DAILY 09/13/18 09/13/18 History pregabalin [Lyrica] 100 mg PO TID 09/13/18 09/13/18 History rivaroxaban [Xarelto] 20 mg PO DAILY 09/13/18 09/13/18 History simvastatin 20 mg PO QPM 09/13/18 09/13/18 History topiramate 50 mg PO BID 09/13/18 09/13/18 History trazodone 150 mg PO DAILY 09/13/18 09/13/18 History Active Medications: Active Medications Acetaminophen (Tylenol) 650 mg PO Q4H PRN PRN Reason: Temp > 100.4 Al Hydroxide/Mg Hydroxide (Milk Of Magnesia Liq) 30 ml PO Q12H PRN PRN Reason: Mild Constipation Albuterol (Duoneb Neb (Prn)) 1 ampul NEB Q4HR NEB PRN PRN Reason: SOB/Wheezing Last Admin: 09/13/18 07:51 Dose: 1 ampul Amlodipine Besylate (Norvasc) 5 mg PO DAILY [facility] Last Admin: 09/13/18 09:05 Dose: 5 mg Bisacodyl (Dulcolax Supp) 10 mg RECTAL DAILY PRN PRN Reason: SEVERE CONSITIPATION Chlorhexidine Gluconate (Chlorhexidine 2% Cloth) 3 pack TOPICAL DAILY@0400 [facility] Stop: 09/19/18 03:59 Chlorhexidine Gluconate (Chlorhexidine 2% Cloth) 3 pack TOPICAL DAILY@0400 PRN PRN Reason: Extra cloth needed Stop: 09/19/18 03:59 Duloxetine HCl (Cymbalta) 30 mg PO TID [facility] Last Admin: 09/13/18 09:05 Dose: 30 mg Heparin Sodium (Porcine) (Heparin Inj) 5,000 units SQ Q8H [facility] Last Admin: 09/13/18 05:05 Dose: 5,000 units Azithromycin 250 mg/ Sodium (Chloride) 250 mls @ 250 mls/hr IV.SIG Q24H [facility] Ceftriaxone Sodium 1,000 mg/ (Sodium Chloride) 100 mls @ 200 mls/hr IV.SIG Q24H [facility] Sodium Chloride (Ns Inj) 1,000 mls @ 100 mls/hr IV.CONT .Q10H [facility] Last Admin: 09/13/18 05:05 Dose: 100 mls/hr Lactulose (Lactulose Liq) 30 ml PO DAILY PRN PRN Reason: SEVERE CONSITIPATION Lamotrigine (Lamictal) 100 mg PO DAILY [facility] Last Admin: 09/13/18 09:05 Dose: 100 mg Levothyroxine Sodium (Synthroid) 112 mcg PO DAILY@0700 [facility] Last Admin: 09/13/18 06:51 Dose: Not Given Losartan Potassium (Cozaar) 100 mg PO DAILY [facility] Last Admin: 09/13/18 09:05 Dose: 100 mg Methylprednisolone Sodium Succinate (Solumedrol Inj) 40 mg IV.PUSH Q8H [facility] Last Admin: 09/13/18 06:49 Dose: 40 mg Metoprolol Tartrate (Lopressor) 50 mg PO BID [facility] Last Admin: 09/13/18 09:05 Dose: 50 mg Ondansetron HCl (Zofran Inj) 4 mg IV.PUSH Q6H PRN PRN Reason: NAUSEA OR VOMITING Pravastatin Sodium (Pravachol) 40 mg PO QPM [facility] Pregabalin (Lyrica) 100 mg PO TID [facility] Last Admin: 09/13/18 10:02 Dose: 100 mg Rivaroxaban (Xarelto) 20 mg PO DAILY [facility] Last Admin: 09/13/18 09:04 Dose: 20 mg Senna/Docusate Sodium (Flori-Colace) 1 tab PO BID [facility] Last Admin: 09/13/18 09:05 Dose: 1 tab Sennosides (Senokot) 17.2 mg PO Q12H PRN PRN Reason: Moderate Constipation Sodium Chloride (Ns Flush) 2 ml IV.FLUSH PRN PRN PRN Reason: FLUSH AFTER USING IV ACCESS Sodium Chloride (Ns Flush) 2 ml IV.FLUSH BID [facility] Last Admin: 09/13/18 09:05 Dose: Not Given Tolterodine Tartrate (Detrol La) 4 mg PO DAILY [facility] Last Admin: 09/13/18 10:01 Dose: 4 mg Topiramate (Topamax) 50 mg PO BID [facility] Last Admin: 09/13/18 09:05 Dose: 50 mg Trazodone HCl (Desyrel) 150 mg PO DAILY [facility] Last Admin: 09/13/18 09:04 Dose: 150 mg Physical Exam Vital signs: Last Vital Signs Temp 98.0 F 09/13/18 08:00 Pulse 79 09/13/18 08:00 Resp 24 09/13/18 08:00 BP 126/69 09/13/18 08:00 Pulse Ox 95 09/13/18 08:00 Intake & Output 09/11/18 09/12/18 09/13/18 09/14/18 06:59 06:59 06:59 06:59 Intake Total 850 / 850 Balance 850 / 850 Weight 215 kg Narrative: GENERAL: AAOx3, no acute distress, obese SKIN: Warm and dry, no rashes. HEAD: Atraumatic. Normocephalic. EYES: Pupils equal, round, reactive to light. No scleral icterus. No injection or drainage. ENT: No nasal bleeding or discharge. Moist mucous membranes. Nonerythematous oropharynx. NECK: Trachea midline. No JVD. Thyroid size within normal limits. CARDIOVASCULAR: Borderline tachycardia. No murmur, no gallops, no rubs. RESPIRATORY: Scattered wheezing and congestion throughout bilateral lungs with diminished sounds in left base. No accessory muscle use. GASTROINTESTINAL: Abdomen soft, non-tender, nondistended, normal active bowel sounds. Hepatic and splenic margins not palpable. MUSCULOSKELETAL: Extremities without clubbing or cyanosis. No obvious deformities. No edema. NEUROLOGICAL: Awake and alert. No obvious cranial nerve deficits. Motor grossly within normal limits. No focal deficits. Five out of 5 muscle strength in the arms and legs. Normal speech. PSYCHIATRIC: Appropriate mood and affect; insight and judgment normal. Results Labs CBC & Chem 7: 09/13/18 02:00 09/13/18 02:00 Imaging Impressions Chest X-Ray 09/13/18 01:58 CONCLUSION: Left basilar airspace disease. Head CT 09/13/18 01:58 CONCLUSION: 1. No acute intracranial abnormality 2. Small amount of fluid in the maxillary sinuses greater on the left. This can be seen with sinusitis. . Caprini VTE Risk Assessment Caprini VTE Risk Assessment: Moderate/High Risk (score >= 2) Caprini Risk Assessment Model: Point Value = 1 Point Value = 2 Point Value = 3 Point Value = 5 Age 41-60 Minor surgery BMI > 25 kg/m2 Swollen legs Varicose veins or History of unexplained or recurrent spontaneous Oral contraceptives or hormone replacement Sepsis (< 1 month) Serious lung disease, including pneumonia (< 1 month) Abnormal pulmonary function Acute myocardial infarction Congestive heart failure (< 1 month) History of inflammatory bowel disease Medical patient at bed rest Age 61-74 Arthroscopic surgery Major open surgery (> 45 min) Laparoscopic surgery (> 45 min) Malignancy Confined to bed (> 72 hours) Immobilizing plaster cast Central venous access Age >= 75 History of VTE Family history of VTE Factor V Leiden Prothrombin [id number] Lupus anticoagulant Anticardiolipin antibodies Elevated serum homocysteine Heparin-induced thrombocytopenia Other congenital or acquired thrombophilia Stroke (< 1 month) Elective arthroplasty Hip, pelvis, or leg fracture Acute spinal cord injury (< 1 month) Prophylaxis Regimen: Total Risk Factor Score Risk Level Prophylaxis Regimen 0-1 Low Early ambulation 2 Moderate Order ONE of the following: *Sequential Compression Device (SCD) *Heparin 5000 units SQ BID 3-4 Higher Order ONE of the following medications: *Heparin 5000 units SQ TID *Enoxaparin/Lovenox 40 mg SQ daily (WT < 150 kg, CrCl > 30 mL/min) *Enoxaparin/Lovenox 30 mg SQ daily (WT < 150 kg, CrCl > 10-29 mL/min) *Enoxaparin/Lovenox 30 mg SQ BID (WT < 150 kg, CrCl > 30 mL/min) AND/OR *Sequential Compression Device (SCD) 5 or more Highest Order ONE of the following medications: *Heparin 5000 units SQ TID (Preferred with Epidurals) *Enoxaparin/Lovenox 40 mg SQ daily (WT < 150 kg, CrCl > 30 mL/min) *Enoxaparin/Lovenox 30 mg SQ daily (WT < 150 kg, CrCl > 10-29 mL/min) *Enoxaparin/Lovenox 30 mg SQ BID (WT < 150 kg, CrCl > 30 mL/min) AND *Sequential Compression Device (SCD) Assessment and Plan Plan LLL pneumonia COPD exacerbation Continue empiric treatment with azithromycin and Rocephin Continue supportive care with Solu-Medrol 40 mg every 8, duonebs, BiPAP Patient to remain on anesthesia until no longer needing BiPAP Blood cultures pending Urinary tract infection Continue Rocephin Follow cultures Type 2 diabetes Accu-Cheks with sliding scale insulin coverage Diabetic diet Hypothyroidism Continue home dose levothyroxine Hypertension Continue losartan and amlodipine DVT Prophylaxis Heparin H&P: Quality VTE Deep Vein Thrombosis/Pulmonary Embolism Present on Admission: No
--- NOTE | 2018-09-13 15:50 | ECG ---
Date Performed: 09/13/2018 Time Performed: 01:52:43 PTAGE: 67 years EKG: Sinus rhythm INCOMPLETE RIGHT BUNDLE BRANCH BLOCK MINIMAL ST DEPRESSION Since the previous tracing, no significan t change noted BORDERLINE ECG NO PREVIOUS TRACING DOCTOR: Nas Ignacio Interpretating Date/Time 09/13/2018 15:47:56
[2018-09-14] MEDS: Sod Chloride 0.9% Inj 1,000 ML IV.CONT SCH ×2 (00:22→13:00)
[2018-09-14] MEDS ORDERED: Morphine Inj 4 MG/ML Vial IV.PUSH ONE ×2 (01:14→11:51)
[2018-09-14] MEDS ORDERED: Chlorhexidine Gluconate 2% 1 Pack (2 Cloths) TOPICAL PRN (04:00)
[2018-09-14] MEDS: Azithromycin Inj 250 MG in Sodium Chlor 0.9% Inj 250 ML IV.SIG SCH (04:24)
[2018-09-14] MEDS: Chlorhexidine Gluconate 2% 1 Pack (2 Cloths) TOPICAL SCH (04:25)
[2018-09-14 06:45] LABS: Baso % (Auto) 0.1 % (0.0-2.0); Hematocrit 39.6 % (35.0-46.0); Hemoglobin 13.4 gm/dL (11.6-15.3); Lymph # (Auto) 0.7 th/mm3 (1.0-4.8); Lymph % (Auto) 4.9 % (9.0-44.0); Mean Corpuscular HGB Conc 33.8 % (32.0-36.0); Mean Corpuscular Hemoglobin 31.8 pg (27.0-34.0); Mean Platelet Volume 8.5 fL (7.0-11.0); Mono # (Auto) 0.9 th/mm3 (0.0-0.9); Mono % (Auto) 6.8 % (0.0-8.0); Neut % (Auto) 88.2 % (16.0-70.0); Platelet Count 227 th/mm3 (150-450); Red Blood Count 4.21 mil/mm3 (4.00-5.30); Red Cell Distribution Width 14.9 % (11.6-17.2); White Blood Count 13.6 th/mm3 (4.0-11.0)
[2018-09-14 07:07] LABS: Calcium 8.5 mg/dL (8.5-10.1); Carbon Dioxide 21.3 meq/L (21.0-32.0); Potassium 3.8 meq/L (3.5-5.1)
[2018-09-14] MEDS: Levothyroxine 112 MCG Tablet PO SCH (07:34)
[2018-09-14] MEDS: MethylPREDNISolone Sod Succinate Inj 40 MG/ML Vial IV.PUSH SCH ×3 (07:34→21:46)
[2018-09-14 08:08] LABS: Lymphocytes 5 % (9-44); Metamyelocytes 1 % (0-1); Monocytes 5 % (0-8); Ovalocytes 1+; Platelet Estimate Normal (Normal); Platelet Morphology Normal (Normal); Toxic Granulation 1+
[2018-09-14] MEDS: Metoprolol Tartrate 50 MG Tablet PO SCH ×2 (08:46→21:45)
[2018-09-14] MEDS: Tolterodine Tartrate LA 4 MG Capsule PO SCH (08:46)
[2018-09-14] MEDS: amLODIPine 5 MG Tablet PO SCH (08:46)
[2018-09-14] MEDS: Topiramate 25 MG Tablet PO SCH ×2 (08:46→21:45)
[2018-09-14] MEDS: Rivaroxaban 20 MG Tablet PO SCH (08:46)
[2018-09-14] MEDS: traZODone 100 MG Tablet PO SCH (08:46)
[2018-09-14] MEDS: Senna/Docusate Sodium 8.6/50 MG Tablet PO SCH ×2 (08:47→21:46)
[2018-09-14] MEDS: lamoTRIgine 100 MG Tablet PO SCH (08:47)
--- NOTE | 2018-09-14 14:07 | P.PNIM ---
Subjective Interval history: Patient says she is feeling better. Denies any breath. She does report pain all over, she says secondary to missing her opioid medications. Physical Exam Vital signs: Vital Signs 09/13/18 15:00 09/13/18 16:00 09/13/18 17:00 Temperature 97.8 F Pulse Rate 73 68 80 Respiratory Rate 20 Blood Pressure 121/72 Pulse Oximetry 95 09/13/18 18:00 09/13/18 19:00 09/13/18 22:21 Temperature Pulse Rate 68 85 Respiratory Rate 18 Blood Pressure 141/85 H Pulse Oximetry 99 96 09/13/18 23:00 09/14/18 00:00 09/14/18 03:00 Temperature Pulse Rate 86 88 99 H Respiratory Rate 20 22 Blood Pressure 147/86 H Pulse Oximetry 94 L 94 L 09/14/18 04:00 09/14/18 04:20 09/14/18 07:00 Temperature 98.4 F Pulse Rate 96 H 104 H Respiratory Rate 18 20 Blood Pressure 149/93 H Pulse Oximetry 94 L 09/14/18 08:20 09/14/18 09:00 09/14/18 10:00 Temperature Pulse Rate 80 100 H 98 H Respiratory Rate Blood Pressure Pulse Oximetry 09/14/18 11:00 Temperature 98.7 F Pulse Rate 101 H Respiratory Rate 20 Blood Pressure 158/105 H Pulse Oximetry 93 L Intake & Output 09/13/18 09/14/18 09/14/18 18:59 06:59 18:59 Intake Total 240 / 240 1730 / 1730 1100 / 1100 Output Total 1050 / 1050 1600 / 1600 Balance -810 / -810 130 / 130 1100 / 1100 Weight 96.9 kg Intake: IV 1250 / 1250 1100 / 1100 NS Inj 1,000 ML @ 100 mls/hr IV 1000 / 1000 1000 / 1000 .CONT .Q10H [facility] Rx#:[id number] Azithromycin Inj 250 MG In NS 250 / 250 Inj 250 ML @ 250 mls/hr IV.SIG Q24H [facility] Rx#:[id number] Rocephin Inj 1,000 MG In NS Inj 100 / 100 100 ML @ 200 mls/hr IV.SIG Q24H [facility] Rx#:[id number] Oral 240 / 240 480 / 480 Output: Urine 1600 / 1600 Urine Amount (Catheter) 1050 / 1050 Indwelling Urethral Catheter 1050 / 1050 Other: Date of Last Bowel Movement 09/13/18 09/14/18 09/14/18 # Bowel Movements 1 # Incontinent Bowel Movements 1 Narrative: GENERAL: Patient sitting up in bed. Appears comfortable. Obese. alert and oriented x3. SKIN: Warm and dry. HEAD: Normocephalic. EYES: No scleral icterus. No injection or drainage. NECK: Supple, trachea midline. No JVD. CARDIOVASCULAR: Regular rate and rhythm without murmurs, gallops, or rubs. RESPIRATORY: Breath sounds equal bilaterally. No accessory muscle use. GASTROINTESTINAL: Abdomen soft, non-tender, nondistended. MUSCULOSKELETAL: No cyanosis, trace peripheral edema. BACK: Nontender without obvious deformity. No CVA tenderness. - Urinary Catheter Management Indwelling Urethral Catheter Cath placed during this visit: yes Reason for continuing: Hourly intake/output Insertion date: 09/13/18 Insertion time: 05:45 Results - Labs CBC & Chem 7: 09/14/18 06:23 09/14/18 06:23 Laboratory Results - last 24 hr 09/13/18 09/14/18 09/14/18 02:10 06:23 06:23 WBC 13.6 H RBC 4.21 Hgb 13.4 Hct 39.6 MCV 94.0 MCH 31.8 MCHC 33.8 RDW 14.9 Plt Count 227 MPV 8.5 Prelim Diff (Auto) Slide review pending Neut % (Auto) 88.2 H Lymph % (Auto) 4.9 L [place] % (Auto) 6.8 Eos % (Auto) 0.0 Baso % (Auto) 0.1 Neut # (Auto) 12.0 H Lymph # (Auto) 0.7 L [place] # (Auto) 0.9 Eos # (Auto) 0.0 Baso # (Auto) 0.0 WBC Differential Manual diff final Seg Neuts % (Manual) 89 H Lymphocytes % (Manual) 5 L Monocytes % (Manual) 5 Metamyelocytes % (Man) 1 Abs Neuts (Manual) 12.2 H Differential Comment . Toxic Granulation 1+ H Platelet Estimate Normal Platelet Morphology Normal Ovalocytes 1+ H Sodium 147 H Potassium 3.8 D Chloride 118 H Carbon Dioxide 21.3 Anion Gap 8 BUN 12 Creatinine 0.72 Estimated GFR 80 L Random Glucose 175 H Calcium 8.5 Urine Color [place] Urine Clarity Cloudy H Urine pH 5.0 Ur Specific [place] 1.015 Urine Protein 100 H Urine Glucose (UA) Negative Urine Ketones Negative Urine Occult Blood Small H Urine Nitrate Positive H Urine Bilirubin Negative Urine Urobilinogen Less than 2 Ur Leukocyte Esterase Moderate H Urine RBC 6 H Urine WBC Urine WBC Clumps Many H Ur Squamous Epith Cells <1 Ur Transition Epith Cell 1 Ur Renal Epithelial Cell 1 Urine Bacteria Many H Urine Mucus Few H Micro UA Comment Cath-culture ind Urine Culture Comments Cath-cult indicated Microbiology 09/13/18 02:10 Catheterized Urine Urine Culture - Preliminary gram negative rods 09/13/18 02:00 Blood - Peripheral Aerobic Blood Culture - Preliminary No growth in 1 day 09/13/18 02:00 Blood - Peripheral Anaerobic Blood Culture - Preliminary No growth in 1 day 09/13/18 02:10 Blood - Peripheral Aerobic Blood Culture - Preliminary No growth in 1 day 09/13/18 02:10 Blood - Peripheral Anaerobic Blood Culture - Preliminary No growth in 1 day Assessment and Plan - Plan LLL pneumonia COPD exacerbation Continue empiric treatment with azithromycin and Rocephin Continue supportive care with Solu-Medrol 40 mg every 8, duonebs, BiPAP Patient to remain on anesthesia until no longer needing BiPAP Blood cultures pending = Respiratory status improving. Continue nebs, steroids, CPAP at night Urinary tract infection Continue Rocephin Follow cultures = Gram-negative rods on urinalysis. Continue antibiotics. Follow-up cultures. Type 2 diabetes Accu-Cheks with sliding scale insulin coverage Diabetic diet Hypothyroidism Continue home dose levothyroxine Chronic pain -With increased blood pressure and heart rate likely secondary to opioid withdrawal. Will restart home medications. Hypertension Continue losartan and amlodipine DVT Prophylaxis Heparin Discussed Condition With: Patient, nurse Discharge Planning: PT consult ordered and pending We will need sensitivities from urine culture.
[2018-09-14] MEDS: Morphine Sulfate 30 MG SR Tablet PO SCH ×2 (17:58→21:46)
[2018-09-15] MEDS: Azithromycin Inj 250 MG in Sodium Chlor 0.9% Inj 250 ML IV.SIG SCH (05:29)
[2018-09-15] MEDS: Chlorhexidine Gluconate 2% 1 Pack (2 Cloths) TOPICAL SCH (05:30)
[2018-09-15] MEDS: Morphine Sulfate 30 MG SR Tablet PO SCH ×2 (08:01→20:01)
[2018-09-15] MEDS: Topiramate 25 MG Tablet PO SCH ×2 (08:02→20:03)
[2018-09-15] MEDS: lamoTRIgine 100 MG Tablet PO SCH (08:02)
[2018-09-15] MEDS: Metoprolol Tartrate 50 MG Tablet PO SCH ×2 (08:02→20:02)
[2018-09-15] MEDS: amLODIPine 5 MG Tablet PO SCH (08:02)
[2018-09-15] MEDS: Tolterodine Tartrate LA 4 MG Capsule PO SCH (08:02)
[2018-09-15] MEDS: traZODone 100 MG Tablet PO SCH (08:03)
[2018-09-15] MEDS: Rivaroxaban 20 MG Tablet PO SCH (08:03)
[2018-09-15] MEDS: MethylPREDNISolone Sod Succinate Inj 40 MG/ML Vial IV.PUSH SCH ×3 (08:03→22:45)
[2018-09-15] MEDS: Levothyroxine 112 MCG Tablet PO SCH (08:03)
[2018-09-15] MEDS: Senna/Docusate Sodium 8.6/50 MG Tablet PO SCH ×2 (08:04→20:03)
--- NOTE | 2018-09-15 11:18 | P.PNIM ---
Subjective Interval history: She is feeling better after using CPAP overnight. Denies any chest pain or shortness of breath. Physical Exam Vital signs: Vital Signs 09/14/18 12:00 09/14/18 13:00 09/14/18 14:00 Temperature Pulse Rate 104 H 90 90 Respiratory Rate Blood Pressure Pulse Oximetry 09/14/18 15:00 09/14/18 16:00 09/14/18 17:00 Temperature 98.6 F Pulse Rate 68 88 76 Respiratory Rate 20 Blood Pressure 145/82 H Pulse Oximetry 94 L 09/14/18 18:00 09/14/18 19:00 09/14/18 20:00 Temperature Pulse Rate 86 99 H 92 H Respiratory Rate 20 Blood Pressure 163/97 H Pulse Oximetry 99 09/14/18 21:00 09/14/18 22:00 09/14/18 22:43 Temperature Pulse Rate 80 88 Respiratory Rate 20 Blood Pressure Pulse Oximetry 09/14/18 23:00 09/15/18 00:00 09/15/18 01:00 Temperature Pulse Rate 66 69 76 Respiratory Rate 18 Blood Pressure Pulse Oximetry 95 09/15/18 02:00 09/15/18 03:00 09/15/18 04:00 Temperature Pulse Rate 58 L 56 L 56 L Respiratory Rate Blood Pressure Pulse Oximetry 09/15/18 05:00 09/15/18 06:00 09/15/18 07:00 Temperature Pulse Rate 56 L 68 72 Respiratory Rate Blood Pressure Pulse Oximetry 09/15/18 08:00 09/15/18 08:49 09/15/18 09:00 Temperature 98.9 F Pulse Rate 89 70 Respiratory Rate 19 Blood Pressure 173/105 H Pulse Oximetry 93 L 92 L 09/15/18 09:33 09/15/18 10:54 Temperature Pulse Rate 67 55 L Respiratory Rate Blood Pressure Pulse Oximetry Intake & Output 09/14/18 09/15/18 09/15/18 18:59 06:59 18:59 Intake Total 1640 / 1640 340 / 340 250 / 250 Output Total 2300 / 2300 1100 / 1100 Balance -660 / -660 -760 / -760 250 / 250 Weight 95.8 kg Intake: IV 1400 / 1400 100 / 100 250 / 250 NS Inj 1,000 ML @ 100 mls/hr IV 1300 / 1300 .CONT .Q10H [facility] Rx#:[id number] Azithromycin Inj 250 MG In NS 250 / 250 Inj 250 ML @ 250 mls/hr IV.SIG Q24H [facility] Rx#:[id number] Rocephin Inj 1,000 MG In NS Inj 100 / 100 100 / 100 100 ML @ 200 mls/hr IV.SIG Q24H [facility] Rx#:[id number] Oral 240 / 240 240 / 240 Output: Urine 2300 / 2300 1100 / 1100 Other: Date of Last Bowel Movement 09/14/18 09/14/18 09/15/18 Narrative: GENERAL: Patient sitting up in bed. Appears comfortable. Obese. alert and oriented x3. Appears more comfortable today. SKIN: Warm and dry. HEAD: Normocephalic. EYES: No scleral icterus. No injection or drainage. NECK: Supple, trachea midline. No JVD. CARDIOVASCULAR: Regular rate and rhythm without murmurs, gallops, or rubs. RESPIRATORY: Breath sounds equal bilaterally. No accessory muscle use. GASTROINTESTINAL: Abdomen soft, non-tender, nondistended. MUSCULOSKELETAL: No cyanosis, trace peripheral edema. BACK: Nontender without obvious deformity. No CVA tenderness. - Urinary Catheter Management Indwelling Urethral Catheter Cath placed during this visit: yes Reason for continuing: Hourly intake/output Insertion date: 09/13/18 Insertion time: 05:45 Results - Labs CBC & Chem 7: 09/14/18 06:23 09/14/18 06:23 Laboratory Results - last 24 hr 09/13/18 02:10 Urine Color [place] Urine Clarity Cloudy H Urine pH 5.0 Ur Specific [place] 1.015 Urine Protein 100 H Urine Glucose (UA) Negative Urine Ketones Negative Urine Occult Blood Small H Urine Nitrate Positive H Urine Bilirubin Negative Urine Urobilinogen Less than 2 Ur Leukocyte Esterase Moderate H Urine RBC 6 H Urine WBC Urine WBC Clumps Many H Ur Squamous Epith Cells <1 Ur Transition Epith Cell 1 Ur Renal Epithelial Cell 1 Urine Bacteria Many H Urine Mucus Few H Micro UA Comment Cath-culture ind Urine Culture Comments Cath-cult indicated Microbiology 09/13/18 02:00 Blood - Peripheral Aerobic Blood Culture - Preliminary No growth in 2 days 09/13/18 02:00 Blood - Peripheral Anaerobic Blood Culture - Preliminary No growth in 2 days 09/13/18 02:10 Blood - Peripheral Aerobic Blood Culture - Preliminary No growth in 2 days 09/13/18 02:10 Blood - Peripheral Anaerobic Blood Culture - Preliminary No growth in 2 days 09/13/18 02:10 Catheterized Urine Urine Culture - Preliminary Escherichia coli gram negative rods Assessment and Plan - Plan //LLL community-acquired pneumonia // COPD exacerbation //Asthma exacerbation Continue empiric treatment with azithromycin and Rocephin Continue supportive care with Solu-Medrol 40 mg every 8, duonebs, BiPAP Patient to remain on anesthesia until no longer needing BiPAP Blood cultures pending = Respiratory status much improved. Continue nebs, steroids, CPAP at night Urinary tract infection Continue Rocephin Follow cultures = Gram-negative rods on urinalysis. Continue antibiotics. Follow-up cultures. = 09/15. E. coli on urinalysis, however also 100,000 colony-forming units of another gram-negative aby. We will follow-up results. Type 2 diabetes Accu-Cheks with sliding scale insulin coverage Diabetic diet. Order A1c. Hypothyroidism Continue home dose levothyroxine Chronic pain -With increased blood pressure and heart rate likely secondary to opioid withdrawal. Will restart home medications. = 09/15. Improved on home meds, as well as CPAP. Sleep apnea Patient will need to follow-up with primary care, pulmonology as outpatient to recheck her home CPAP, which will likely need adjustment in pressures. Hypertension Continue losartan and amlodipine DVT Prophylaxis Heparin Discharge Planning: PT recommends home with home health Likely home tomorrow when final culture returns.
--- NOTE | 2018-09-15 11:19 | P.DCO ---
- Diagnosis (1) Pneumonia Status: Acute (2) UTI (urinary tract infection) Status: Acute (3) Acute respiratory distress Status: Acute - Physical Therapy Order: Evaluate and treat - Home Health Nursing Order: Nursing assessment with vital signs - Facilities Operations Technician Order: To provide: Long range planning - Case Management Consult Case Management Consult-Home Health: Yes - Certification I have seen patient Maryjo Tellez on 09/15/18. My clinical findings support the need for the requested home health care services because: Limited ability to care for self I certify that my clinical findings support that this patient is homebound because: Unsafe to leave home unassisted (1) Pneumonia Qualifiers: Pneumonia type: due to unspecified organism Laterality: left Lung location: lower lobe of lung Qualified Code(s): J18.1 - Lobar pneumonia, unspecified organism (2) UTI (urinary tract infection) Qualifiers: Urinary tract infection type: site unspecified Hematuria presence: without hematuria Qualified Code(s): N39.0 - Urinary tract infection, site not specified
[2018-09-15 13:19] LABS: Hematocrit 36.6 % (35.0-46.0); Hemoglobin 13.2 gm/dL (11.6-15.3); Mean Corpuscular Hemoglobin 33.7 pg (27.0-34.0); Mean Corpuscular Volume 93.4 fL (80.0-100.0); Platelet Count 249 th/mm3 (150-450); Red Blood Count 3.91 mil/mm3 (4.00-5.30); Red Cell Distribution Width 14.6 % (11.6-17.2); White Blood Count 13.9 th/mm3 (4.0-11.0)
[2018-09-15 13:24] LABS: Mean Corpuscular HGB Conc 36.1 % (32.0-36.0)
[2018-09-15 13:41] LABS: Carbon Dioxide 21.9 meq/L (21.0-32.0); Potassium 3.6 meq/L (3.5-5.1)
[2018-09-16] MEDS: Azithromycin Inj 250 MG in Sodium Chlor 0.9% Inj 250 ML IV.SIG SCH (02:07)
[2018-09-16] MEDS: Chlorhexidine Gluconate 2% 1 Pack (2 Cloths) TOPICAL SCH (03:24)
[2018-09-16] MEDS: Levothyroxine 112 MCG Tablet PO SCH (06:04)
[2018-09-16] MEDS: MethylPREDNISolone Sod Succinate Inj 40 MG/ML Vial IV.PUSH SCH ×2 (06:04→14:56)
[2018-09-16] MEDS: Topiramate 25 MG Tablet PO SCH (08:27)
[2018-09-16] MEDS: Metoprolol Tartrate 50 MG Tablet PO SCH (08:27)
[2018-09-16] MEDS: amLODIPine 5 MG Tablet PO SCH (08:27)
[2018-09-16] MEDS: Rivaroxaban 20 MG Tablet PO SCH (08:27)
[2018-09-16] MEDS: traZODone 100 MG Tablet PO SCH (08:27)
[2018-09-16] MEDS: lamoTRIgine 100 MG Tablet PO SCH (08:27)
[2018-09-16] MEDS: Tolterodine Tartrate LA 4 MG Capsule PO SCH (08:28)
[2018-09-16] MEDS: Morphine Sulfate 30 MG SR Tablet PO SCH (08:28)
[2018-09-16 09:25] LABS: Hemoglobin A1c 6.3 % (4.3-6.0)
[2018-09-16] MEDS: Senna/Docusate Sodium 8.6/50 MG Tablet PO SCH (10:43)
--- NOTE | 2018-09-16 13:29 | P.PN ---
Subjective Interval history: Follow-up COPD exacerbation/community-acquired bacterial pneumonia September 16, 2018-patient seen and examined, reports significant improvement of shortness of breath and denies any chest pain. Currently afebrile. Looking for discharge home. Physical Exam Vital signs: Vital Signs 09/15/18 14:00 09/15/18 15:00 09/15/18 15:27 Temperature 98.7 F Pulse Rate 53 L 55 L 68 Respiratory Rate 18 Blood Pressure 166/97 H Pulse Oximetry 92 L 09/15/18 16:00 09/15/18 17:00 09/15/18 17:22 Temperature Pulse Rate 58 L 93 H 86 Respiratory Rate Blood Pressure Pulse Oximetry 09/15/18 19:00 09/15/18 20:00 09/15/18 21:00 Temperature 98.2 F Pulse Rate 68 84 70 Respiratory Rate 18 Blood Pressure 147/109 H Pulse Oximetry 93 L 09/15/18 22:00 09/15/18 23:00 09/16/18 00:00 Temperature 98.4 F Pulse Rate 66 62 69 Respiratory Rate 18 Blood Pressure 150/100 H Pulse Oximetry 95 09/16/18 01:00 09/16/18 02:00 09/16/18 03:00 Temperature Pulse Rate 65 60 62 Respiratory Rate Blood Pressure Pulse Oximetry 09/16/18 04:00 09/16/18 05:00 09/16/18 06:00 Temperature 98 F Pulse Rate 61 62 64 Respiratory Rate 18 Blood Pressure 151/99 H Pulse Oximetry 95 09/16/18 08:00 09/16/18 12:00 Temperature 98.9 F 98.6 F Pulse Rate 71 63 Respiratory Rate 18 18 Blood Pressure 153/115 H 167/97 H Pulse Oximetry 95 94 L Intake & Output 09/15/18 09/16/18 09/16/18 18:59 06:59 18:59 Intake Total 1510 / 1510 830 / 830 Output Total 900 / 900 1000 / 1000 Balance 610 / 610 -170 / -170 Weight 95.9 kg Intake: IV 250 / 250 350 / 350 Azithromycin Inj 250 MG In NS 250 / 250 250 / 250 Inj 250 ML @ 250 mls/hr IV.SIG Q24H [facility] Rx#:[id number] Rocephin Inj 1,000 MG In NS Inj 100 / 100 100 ML @ 200 mls/hr IV.SIG Q24H [facility] Rx#:[id number] Oral 1260 / 1260 480 / 480 Output: Urine 1000 / 1000 Urine Amount (Catheter) 900 / 900 Indwelling Urethral Catheter 900 / 900 Other: Date of Last Bowel Movement 09/15/18 09/15/18 09/16/18 # Bowel Movements 1 1 Narrative: GENERAL: NAD SKIN: Warm and dry. HEAD: Atraumatic. Normocephalic. EYES: Pupils equal and round. No scleral icterus. No injection or drainage. ENT: No nasal bleeding or discharge. Mucous membranes pink and moist. NECK: Trachea midline. No JVD. CARDIOVASCULAR: Regular rate and rhythm. RESPIRATORY: No accessory muscle use. Clear to auscultation. Breath sounds equal bilaterally. GASTROINTESTINAL: Abdomen soft, non-tender, nondistended. Hepatic and splenic margins not palpable. MUSCULOSKELETAL: Extremities without clubbing, cyanosis, or edema. No obvious deformities. NEUROLOGICAL: Awake and alert. No obvious cranial nerve deficits. Motor grossly within normal limits. Five out of 5 muscle strength in the arms and legs. Normal speech. PSYCHIATRIC: Appropriate mood and affect; insight and judgment normal. - Urinary Catheter Management Indwelling Urethral Catheter Cath placed during this visit: yes, but has since been removed by the nurse Reason for continuing: Decision to DC catheter Insertion date: 09/13/18 Insertion time: 05:45 Removal date: 09/15/18 Removal time: 14:50 Results - Labs CBC & Chem 7: 09/15/18 13:07 09/15/18 13:07 Laboratory Results - last 24 hr 09/15/18 09/15/18 13:07 13:07 Sodium 146 H Potassium 3.6 Chloride 115 H Carbon Dioxide 21.9 Anion Gap 9 BUN 17 Creatinine 0.75 Estimated GFR 77 L Random Glucose 215 H Hemoglobin A1c 6.3 H Calcium 9.0 Microbiology 09/13/18 02:00 Blood - Peripheral Aerobic Blood Culture - Preliminary No growth in 3 days 09/13/18 02:00 Blood - Peripheral Anaerobic Blood Culture - Preliminary No growth in 3 days 09/13/18 02:10 Blood - Peripheral Aerobic Blood Culture - Preliminary No growth in 3 days 09/13/18 02:10 Blood - Peripheral Anaerobic Blood Culture - Preliminary No growth in 3 days 09/13/18 02:10 Catheterized Urine Urine Culture - Final Escherichia coli Klebsiella pneumoniae - Procedures None Assessment and Plan - Assessment (1) Pneumonia Code(s): J18.9 - Pneumonia, unspecified organism Status: Acute (2) UTI (urinary tract infection) Code(s): N39.0 - Urinary tract infection, site not specified Status: Acute (3) Acute respiratory distress Code(s): R06.03 - Acute respiratory distress Status: Acute - Plan 67-year-old female with LLL community-acquired pneumonia COPD exacerbation-resolved Asthma exacerbation-resolved Continue empiric treatment with azithromycin and Rocephin, however will discharge home on Cipro 500 mg p.o. twice daily times 7 days Continue supportive care with Solu-Medrol 40 mg every 8, duonebs, BiPAP. Will discharge home on p.o. prednisone taper Continue nebs, steroids, CPAP at night Urinary tract infection Continue Rocephin, will discharge home on Cipro 500 mg twice daily x 7 days Type 2 diabetes Accu-Cheks with sliding scale insulin coverage Diabetic diet. A1c 6.5 Hypothyroidism Continue home dose levothyroxine Chronic pain Continue home medication Sleep apnea Patient will need to follow-up with primary care, pulmonology as outpatient to recheck her home CPAP, which will likely need adjustment in pressures. Hypertension Continue losartan and amlodipine DVT Prophylaxis Heparin (1) Pneumonia Qualifiers: Pneumonia type: due to unspecified organism Laterality: left Lung location: lower lobe of lung Qualified Code(s): J18.1 - Lobar pneumonia, unspecified organism (2) UTI (urinary tract infection) Qualifiers: Urinary tract infection type: site unspecified Hematuria presence: without hematuria Qualified Code(s): N39.0 - Urinary tract infection, site not specified
--- NOTE | 2018-09-16 13:34 | P.DS ---
Date of admission: 09/13/18 04:20 Primary care physician: Jen Gilbert MD Brief History from admission: 7-year-old female with a history of type 2 diabetes, COPD, hypothyroidism, atrial fibrillation states that she was admitted overnight to the ER. Still related to admission is a cough that started 1 week ago. He was given antibiotics and for the last week has been at home becoming increasingly confused. Her encouraged her to come to the ER number of days ago but she was oriented enough to refuse. Overnight she became markedly confused her called EMS and ambulance transported her to the ER where she was discovered to have pneumonia in her left base. Urine cultures demonstrated urinary tract infection which is likely source of her since receiving 3 doses of antibiotics she has become mentally clear and is now alert and oriented x3. She has a history of COPD and has needed BiPAP overnight. She denies any chest pain or cardiac arrhythmias. She denies any GI symptoms, no nausea or vomiting. She has no focal weakness and no memory loss at this point. DS: Diagnosis - Discharge Diagnosis (1) Pneumonia Status: Acute (2) UTI (urinary tract infection) Status: Acute (3) Acute respiratory distress Status: Acute DS: Medications - Discharge Medications Prescriptions: albuterol sulfate [Ventolin HFA] 2 puff INHALATION Q4-6H PRN #1 g PRN Reason: Shortness Of Breath budesonide-formoterol [Symbicort] 2 puff INHALATION Q12H #1 g ciprofloxacin HCl [Cipro] 500 mg PO Q12H #14 tab ipratropium bromide [Atrovent HFA] 1 puff INHALATION Q6H #1 g prednisolone 10 mg PO DAILY #7 tab tiotropium bromide [Spiriva with HandiHaler] 1 cap INHALATION DAILY #30 inh DS: Summary Hospital Course: Patient admitted secondary to COPD exacerbation respiratory failure along with community-acquired bacterial pneumonia for which she was started on IV Solu- Medrol, bronchodilator, IV antibiotics of oxygen maintain at 92%. She was also placed on a trial of BiPAP and subsequently switched to CPAP. Patient conditions improved prior to discharge. She was also treated for UTI and will be discharged home on Cipro 500 mg p.o. twice daily times 7 days. Patient was continue with treatment for other chronic medical conditions. DVT and GI prophylaxis were provided. Prior to discharge, patient's conditions improved and vitals remained stable. - Time Spent with Patient Total time spent providing and/or coordinating discharge services: Greater than 30 minutes - Quality: VTE Deep Vein Thrombosis/Pulmonary Embolism Present on Admission: No Exam Vital signs: Vital Signs 09/15/18 14:00 09/15/18 15:00 09/15/18 15:27 Temperature 98.7 F Pulse Rate 53 L 55 L 68 Respiratory Rate 18 Blood Pressure 166/97 H Pulse Oximetry 92 L 09/15/18 16:00 09/15/18 17:00 09/15/18 17:22 Temperature Pulse Rate 58 L 93 H 86 Respiratory Rate Blood Pressure Pulse Oximetry 09/15/18 19:00 09/15/18 20:00 09/15/18 21:00 Temperature 98.2 F Pulse Rate 68 84 70 Respiratory Rate 18 Blood Pressure 147/109 H Pulse Oximetry 93 L 09/15/18 22:00 09/15/18 23:00 09/16/18 00:00 Temperature 98.4 F Pulse Rate 66 62 69 Respiratory Rate 18 Blood Pressure 150/100 H Pulse Oximetry 95 09/16/18 01:00 09/16/18 02:00 09/16/18 03:00 Temperature Pulse Rate 65 60 62 Respiratory Rate Blood Pressure Pulse Oximetry 09/16/18 04:00 09/16/18 05:00 09/16/18 06:00 Temperature 98 F Pulse Rate 61 62 64 Respiratory Rate 18 Blood Pressure 151/99 H Pulse Oximetry 95 09/16/18 08:00 09/16/18 12:00 Temperature 98.9 F 98.6 F Pulse Rate 71 63 Respiratory Rate 18 18 Blood Pressure 153/115 H 167/97 H Pulse Oximetry 95 94 L Intake & Output 09/15/18 09/16/18 09/16/18 18:59 06:59 18:59 Intake Total 1510 / 1510 830 / 830 Output Total 900 / 900 1000 / 1000 Balance 610 / 610 -170 / -170 Weight 95.9 kg Intake: IV 250 / 250 350 / 350 Azithromycin Inj 250 MG In NS 250 / 250 250 / 250 Inj 250 ML @ 250 mls/hr IV.SIG Q24H [facility] Rx#:[id number] Rocephin Inj 1,000 MG In NS Inj 100 / 100 100 ML @ 200 mls/hr IV.SIG Q24H [facility] Rx#:[id number] Oral 1260 / 1260 480 / 480 Output: Urine 1000 / 1000 Urine Amount (Catheter) 900 / 900 Indwelling Urethral Catheter 900 / 900 Other: Date of Last Bowel Movement 09/15/18 09/15/18 09/16/18 # Bowel Movements 1 1 Narrative: GENERAL: NAD SKIN: Warm and dry. HEAD: Atraumatic. Normocephalic. EYES: Pupils equal and round. No scleral icterus. No injection or drainage. ENT: No nasal bleeding or discharge. Mucous membranes pink and moist. NECK: Trachea midline. No JVD. CARDIOVASCULAR: Regular rate and rhythm. RESPIRATORY: No accessory muscle use. Clear to auscultation. Breath sounds equal bilaterally. GASTROINTESTINAL: Abdomen soft, non-tender, nondistended. Hepatic and splenic margins not palpable. MUSCULOSKELETAL: Extremities without clubbing, cyanosis, or edema. No obvious deformities. NEUROLOGICAL: Awake and alert. No obvious cranial nerve deficits. Motor grossly within normal limits. Five out of 5 muscle strength in the arms and legs. Normal speech. PSYCHIATRIC: Appropriate mood and affect; insight and judgment normal. Results Procedures completed during hospitalization: None Labs on day of discharge: Labs from last 24 hours 09/15/18 09/15/18 13:07 13:07 Sodium 146 H Potassium 3.6 Chloride 115 H Carbon Dioxide 21.9 Anion Gap 9 BUN 17 Creatinine 0.75 Estimated GFR 77 L Random Glucose 215 H Hemoglobin A1c 6.3 H Calcium 9.0 Preliminary micro results at discharge 09/13/18 02:00 Aerobic Blood Culture - Preliminary Blood - Peripheral No growth in 3 days Anaerobic Blood Culture - Preliminary No growth in 3 days 09/13/18 02:10 Aerobic Blood Culture - Preliminary Blood - Peripheral No growth in 3 days Anaerobic Blood Culture - Preliminary No growth in 3 days - Impressions ITS Impressions Chest X-Ray 09/13/18 01:58 CONCLUSION: Left basilar airspace disease. Head CT 09/13/18 01:58 CONCLUSION: 1. No acute intracranial abnormality 2. Small amount of fluid in the maxillary sinuses greater on the left. This can be seen with sinusitis. . Discharge Plan - Discharge Disposition Patient Disposition: W/Home Health Service - Discharge Condition Condition: Good - Discharge Order Discharge Orders: Discharge Order (Routine); Ordered 09/16/18 Ordered By: Mika Olivares - Physicians Team Primary Care Provider: Jen Gilbert Attending Provider: Mika Olivares Other Providers: Yeny Saini
== END 2018-09-16 15:11 | disposition home health service (06) ==
LOC: NEPC 01:31 → NEDA 04:20 → HIMC 05:50 → HCIS 13:20
PROVIDERS: ADMIT Hospitalist; ATTEND Hospitalist